=== PATIENT | female | born 1975 | race Caucasian/White ===

== ENCOUNTER → 2020-03-14 | Outpatient (CLI) | payer MEDICARE ==
[~2020-03-14] MED LIST: OMNIPAQUE 350 MG/ML, 150 ML BOTTLE ONE
== END | disposition home or self-care (01) ==
LOC: RAD 14:43
PROVIDERS: ATTEND Family Medicine
DX: N32.89 Other specified disorders of bladder (principal); R31.29 Other microscopic hematuria
CPT/HCPCS: 74178; Q9967

== ENCOUNTER 2020-03-22 09:50 | Emergency (ER) | payer MEDICARE ==
[~2020-03-22] VITALS: Ht 170.2 cm; Wt 86.2 kg
--- NOTE | 2020-03-22 10:28 | NUR ---
this is a 45 yr old female hx of diverticulosis and diverticulitis which she feels the pain is similar. recent urine at [facility], ct scan and labs per pt
[2020-03-22] MEDS ORDERED: ONDANSETRON 2MG/ML, 2ML IVPush ONE (10:30)
[2020-03-22] MEDS ORDERED: FAMOTIDINE 20 MG/2 ML IV ONE (10:30)
[2020-03-22] MEDS ORDERED: PROMETHAZINE 25 MG/ML, 1ML IM ONE (10:30)
[2020-03-22] MEDS ORDERED: KETOROLAC 30 MG/1 ML IVPush ONE (10:30)
[2020-03-22] MEDS ORDERED: SODIUM CHLORIDE FLUSH 10ML SYR IVF ONE (10:30)
[2020-03-22] MEDS ORDERED: SODIUM CHLORIDE 0.9% 1,000ML IVBOLUS ONE (10:30)
[2020-03-22] MEDS ORDERED: FAMOTIDINE 20 MG/2 ML ONE (10:31)
[2020-03-22] MEDS ORDERED: KETOROLAC 30 MG/1 ML ONE (10:31)
[2020-03-22] MEDS ORDERED: PROMETHAZINE 25 MG/ML, 1ML ONE (10:31)
[2020-03-22] MEDS ORDERED: ONDANSETRON 2MG/ML, 2ML ONE (10:31)
[2020-03-22 10:39] LABS: BASOPHILS # (AUTO) 0.03 x10^3/uL (0-0.1); BASOPHILS % (AUTO) 0 % (0-1); EOSINOPHILS # (AUTO) 0.15 x10^3/uL (0-0.4); EOSINOPHILS % (AUTO) 2 % (1-7); LYMPHOCYTES # (AUTO) 1.87 x10^3/uL (1-3.4); LYMPHOCYTES % (AUTO) 23 % (22-44); MD NO; MEAN CORPUSCULAR HEMOGLOBIN 32.5 pg (27.0-34.8); MEAN CORPUSCULAR HGB CONC 33.8 g/dL (32.4-35.8); MEAN CORPUSCULAR VOLUME 96.4 fL (80-100); MEAN PLATELET VOLUME 7.4 fL (7.4-10.4); MONOCYTES # (AUTO) 0.49 x10^3/uL (0.2-0.8); MONOCYTES % (AUTO) 6 % (2-9); NEUTROPHILS # (AUTO) 5.44 x10^3/uL (1.8-6.8); NEUTROPHILS % (AUTO) 68 % (42-75); PLATELET COUNT 278 x10^3/uL (130-400); RED BLOOD COUNT 4.68 x10^6/uL (3.82-5.3); RED CELL DISTRIBUTION WIDTH 12.9 % (9.6-15.2)
[2020-03-22 10:44] VITALS: BP 121/73
--- NOTE | 2020-03-22 10:44 | NUR ---
PT MEDICATED PER ORDER. WARM BLANKETS PROVIDED. CALL LIGHT IN REACH
[2020-03-22 10:49] LABS: ALANINE AMINOTRANSFERASE 20 U/L (12-78); ALBUMIN 3.5 g/dL (3.4-5.0); ANION GAP 8 mmol/L (5-15); CHLORIDE 109 mmol/L (98-107); CREATININE 0.67 mg/dL (0.55-1.02)
[2020-03-22 10:51] LABS: ALKALINE PHOSPHATASE 59 U/L (45-117); BILIRUBIN,TOTAL 0.4 mg/dL (0.2-1.0); TOTAL PROTEIN 6.6 g/dL (6.4-8.2)
--- NOTE | 2020-03-22 11:46 | NUR ---
PT RESTING COMFORTABLY. MADE AWARE. PT TO BE D/C
== END 2020-03-22 12:00 | disposition home or self-care (01) ==
LOC: ED 11:13
DX: R10.84 Generalized abdominal pain (principal); K62.5 Hemorrhage of anus and rectum; Z90.710 Acquired absence of both cervix and uterus
CPT/HCPCS: 36415; 74021; 80053; 85025; 96361; 96372; 96374; 96375; 99284; J1885; J2405; J2550; J3490; J7030